=== PATIENT | female | born 1945 | race Caucasian/White ===

== ENCOUNTER → 2018-08-18 13:20 | Outpatient (CLI) | payer MEDICARE, MEDICAID | END | disposition home or self-care (01) | LOC: D.RAD 13:20 | DX: M54.2 Cervicalgia (principal) ==

== ENCOUNTER → 2018-09-02 15:46 | Outpatient (CLI) | payer MEDICARE, MEDICAID | END | disposition home or self-care (01) | LOC: D.CT 09-01 15:00 | DX: M54.2 Cervicalgia (principal) ==

== ENCOUNTER → 2021-01-25 14:40 | Outpatient (CLI) | payer MEDICARE, MEDICAID | END | disposition home or self-care (01) | LOC: D.CT 14:30 | PROVIDERS: ATTEND Neurological Surgery | DX: M54.12 Radiculopathy, cervical region (principal) ==

== ENCOUNTER 2021-04-07 06:50 | Day surgery (SDC) | payer MEDICARE, MEDICAID ==
[2021-04-03 16:27] LABS: BASOPHILS 0.9 % (0-2); EOSINOPHILS 0.8 % (0-7); HEMATOCRIT 39.1 % (36.0-48.0); MCH 28.2 pg (26.0-34.0); MCHC 33.1 g/dL (31.0-37.0); MCV 85.1 fL (80.0-100.0); NEUTROPHILS 68.3 % (40-80); PLATELET COUNT 290 10x3/uL (130-400); RDW 16.3 % (11.5-14.5); WBC 6.7 10x3/uL (4.8-10.8)
[2021-04-03 16:35] LABS: APTT 34.7 SECONDS (22.8-39.4); INR 1.39 (0.85-1.17); PROTIME 15.8 SECONDS (11.6-15.0)
[2021-04-03 16:36] LABS: ANION GAP 13.3 mmol/L (8-16); CALCIUM 9.1 mg/dL (8.5-10.1); CARBON DIOXIDE 26.5 mmol/L (21.0-32.0); CREATININE - SERUM 0.8 mg/dL (0.6-1.3); POTASSIUM - SERUM 3.8 mmol/L (3.5-5.1)
[~2021-04-07] VITALS: Ht 162.6 cm; Wt 50.0 kg
--- NOTE | ~2021-04-07 | OP ---
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 PROCEDURE: Anterior cervical discectomy and fusion at C5-C6 with PEEK interbody cage, bone stem cells, separate [facility] anterior cervical plate and screws. SURGEON: Caleb Chvaez MD DESCRIPTION OF PROCEDURE: After induction of general endotracheal anesthesia, the patient was positioned supine on the operating table. Neck was prepped and draped in the usual sterile fashion. Fluoroscopic x-ray and the [place] localized the C5-C6 interspace. After infiltration of 1:100,000 epinephrine with 1% lidocaine, a transverse skin incision was carried out from the midline to the sternocleidomastoid muscle. The platysma was divided with sharp dissection. Using blunt and sharp dissection with Metzenbaum scissors, I proceeded in the avascular plane medial to the carotid sheath. The C5-C6 interspace was identified with fluoroscopic x-ray and a spinal needle. The longus colli muscles were elevated from the bodies of C5 and C6. Self-retaining retractors placed deep to the longus colli muscles. [place] distracting pins were placed in the bodies of C5 and C6. The disk space was incised. Disk material was removed with pituitary rongeurs and curettes. The cartilage from the endplates was removed with curettes and pituitary rongeurs. Osteophytes were drilled away posteriorly with a Midas Celestino drill and a microscope. The posterior longitudinal ligament was removed with Cloward rongeurs. The dura was decompressed well. Meticulous hemostasis was maintained throughout the wound. The wound was irrigated with copious amounts of lukewarm saline irrigant solution. A PEEK interbody cage was placed in the disk space under distraction. Prior to this, it was filled with [place] bone allograft. A separate [facility] anterior cervical plate and screws was used to span the C5-C6 interspace. Self-drilling screws were placed in the holes in the plate. Locking cams were tightened down over the screw heads. Good position of the hardware was confirmed with fluoroscopic x-ray. The retractor was removed. Meticulous hemostasis was maintained throughout the wound. The wound was irrigated with copious amounts of Ancef irrigant solution. The platysma and subdermal layer was closed with interrupted 4-0 Vicryl suture. The skin was reapproximated with Steri-Strips and benzoin. A sterile dressing was applied to the wound. The patient was awakened in good condition and taken to recovery. All counts were reported as correct. Estimated blood loss was minimal. TRANSINT:[id number] Voice Confirmation ID: [id number] DOCUMENT ID: [id number] OPERATIVE REPORT [id number] JOSE BAGLEY JOHN MD CC: [id number] DICTATION DATE: 04/10/21932 [employer] INST[employer]ER: 04/10/21950 [facility] [place] 04/08/21 [facility] [address] [place] [address]
[~2021-04-07 06:50] MED LIST: AREDS PO; ELIQUIS5 MG PO; MAG-OX 400 MG400 MG PO; PRAVASTATIN SOD10 MG PO; PREMARIN TOPICAL; PROBIOTIC1 EAC1 PO; REMERON15 MG PO; SEROQUEL25 MG PO; TEMAZEPAM30 MG PO; ULTRAM50 MG PO; ZANAFLEX4 MG PO
[2021-04-07 07:47] VITALS: BP 136/90; BMI 17.3
[2021-04-07 13:48] VITALS: BP 157/96
[2021-04-07 15:18] VITALS: BP 157/96; Ht 162.6 cm; Wt 50.0 kg
[2021-04-07 18:10] VITALS: BP 130/73
[2021-04-07 21:05] VITALS: BP 146/71
[2021-04-08 00:16] VITALS: BP 129/88
[2021-04-08 04:25] VITALS: BP 132/76
--- NOTE | 2021-04-08 08:02 | NUR ---
AWAKE AND ALERT. ORIENTED X3. REQUESTED AND GIVEN ONE HYDROCODONE PO FOR C/O NECK PAIN LEVEL 8. WILL MONITOR. LUNGS ARE CLEAR BILATERALLY, NO COUGH NOTED. SKIN IS INTACT WITHOUT REDNESS EXCEPT INCISION TO NECK WHICH IS CLEAN DRY AND WELL APPROXIMATED. SL TO LEFT HAND IS PATENT WITHOUT REDNESS AT INSERTION . DENIES FURTHER NEEDS.
[2021-04-08 08:20] VITALS: BP 134/89
--- NOTE | 2021-04-08 09:00 | NUR ---
ATE MOST OF REGULAR BREAKFAST TRAY. TOOK AM MEDS WITHOUT DIFFFICULTY. DENIES NEEDS. UP TO BR WITH SBA OF ONE.
[2021-04-08] MEDS ORDERED: ZANAFLEX4 MG PO (10:22)
[2021-04-08] MEDS ORDERED: ULTRAM50 MG PO (10:22)
--- NOTE | 2021-04-08 11:40 | NUR ---
DISCHARGED TO HOME WITH FAMILY AMBULATORY. DISCHARGE INSTRUCTIONS GIVEN BOTH VERBALLY AND WRITTEN. ALL QUESTIONS ANSWERED. PATIENT VERBALIZED UNDERSTANDING OF SAME. IV TO LEFT FOREARM D/C WITH CATHETER INTACT. NEEDED PRESCRIPTIONS GIVEN TO PATIENT AND ESCRIBED TO PHARMACY OF CHOICE. ALL BELONGINGS WITH PATIENT.
== END 2021-04-08 12:04 | disposition home or self-care (01) ==
LOC: D.OPS 06:50 → D.MS 12:32 → D.OPS 04-08 12:04
PROVIDERS: Anesthesiology; ATTEND Neurological Surgery
DX: M25.78 Osteophyte, vertebrae (principal); M50.222 Other cervical disc displacement at C5-C6 level; M54.12 Radiculopathy, cervical region